=== PATIENT | male | born 1955 | race African-American/Black ===

== ENCOUNTER 2017-05-25 15:00 | Inpatient (IN) ==
[2017-05-25] MEDS ORDERED: Ipratropium/Albuterol Neb 3 ML IH ONE (15:31)
--- NOTE | 2017-05-25 15:37 | Emergency Department Note ---
Disposition Clinical Impression: Acute exacerbation of chronic obstructive airways disease Community acquired pneumonia Qualifiers: Laterality: unspecified laterality Qualified Code(s): J18.9 - Pneumonia, unspecified organism Disposition: Admitted As Inpatient Condition: Fair Referrals: Dimitri Bearden MD [Primary Care Provider] - Forms: ED Satisfaction Letter Time of Disposition: 17:25 SOB HPI - General Chief Complaint: ED Shortness of Breath/Dyspnea Stated Complaint: LISA Time Seen by Provider: 05/25/17 15:25 Source: patient Mode of arrival: ambulatory Limitations: no limitations Nursing Notes Reviewed: Yes Vital Signs Reviewed: Yes - History of Present Illness 62-year-old history COPD diagnosed with flu B couple of days ago comes in with increasing shortness of breath. Says he has been running a fever and feels worse after initially feeling better. Pt Subjective Complaint: shortness of breath Onset (ago): day(s) Context: recent illness (Flu be diagnosed couple days ago) Severity: moderate Consistency/Duration: constant Improves with: nothing Worsens with: exertion Known history of: COPD, other (Influenza) Associated symptoms: Reports: cough, wheezing Treatment prior to arrival: none Cough present: Yes Cough Description: Involuntary Cough Frequency: Intermittent Sputum Amount: None - Related Data Home Medications Medication Instructions Recorded Confirmed Albuterol Sulfate [Albuterol 2 puff IH Q4H PRN 02/03/16 05/31/16 Inhaler] Amlodipine Besylate 10 mg PO DAILY 02/03/16 05/31/16 Docusate [Colace] 100 mg PO DAILY PRN 02/03/16 05/31/16 Etodolac 500 mg PO BID 02/03/16 05/31/16 Fluticasone/Salmeterol [Advair Hfa 2 puff IH BID 02/03/16 05/31/16 115-21 Mcg Inhaler] Gabapentin [Neurontin] 400 mg PO TID 02/03/16 05/31/16 Oxycodone HCl/Acetaminophen 1 each PO Q8H PRN 02/03/16 05/31/16 [Percocet 10-325 mg Tablet] Metoprolol [Lopressor] 200 mg PO QDPC 05/31/16 05/31/16 hydrALAZINE [HydrALAZINE] 25 mg PO TID 05/31/16 05/31/16 Previous Rx's Medication Instructions Recorded Losartan [Cozaar] 50 mg PO DAILY #60 tablet 02/06/16 Tiotropium [Spiriva] 18 mcg IH 0700 #1 capsule 02/06/16 Albuterol Sulfate [Albuterol 0 puff IH Q4HR #1 hfa.aer.ad 07/08/16 Inhaler] HYDROcodone BIT/Homatropine 5 mg PO Q4HR #5 tablet 07/08/16 [Hycodan] Levofloxacin [Levaquin] 500 mg PO DAILY #9 tablet 07/08/16 predniSONE [Prednisone] 50 mg PO DAILY #5 tablet 07/08/16 Albuterol Neb [Proventil Neb] 2.5 mg IH Q4HR #30 vial.neb 05/22/17 Oseltamivir [Tamiflu] 75 mg PO BID #10 capsule 05/22/17 PredniSONE [Deltasone] 40 mg PO DAILY #3 tablet 05/22/17 Allergies Allergy/AdvReac Type Severity Reaction Status Date / Time lisinopril AdvReac Cough Verified 05/25/17 15:12 All systems ED: reviewed and negative except as stated. Constitutional: Denies: fever, chills, weakness, weight change Eyes: Denies: eye pain, eye discharge, vision change ENT ED: Denies: ear pain, throat pain, dental pain, hearing loss, epistaxis, congestion, dysphagia Cardiovascular: Denies: chest pain, palpitations, dyspnea on exertion, edema, syncope Respiratory: Reports: cough, dyspnea, wheezes. Denies: hemoptysis, stridor Gastrointestinal: Denies: abdominal pain, nausea, vomiting, diarrhea, constipation, hematemesis, melena, hematochezia Genitourinary: Denies: urgency, dysuria, frequency, hematuria Musculoskeletal: Denies: back pain, neck pain, arthralgia, myalgia Integumentary: Denies: rash, abrasion, lesions Neurological: Denies: headache, weakness, numbness, paresthesias, confusion, abnormal gait, vertigo Psychiatric: Denies: anxiety, depression, suicidal thoughts, homicidal thoughts , auditory hallucinations, visual hallucinations Endocrine: Denies: fatigue Hematological/Lymphatic: Denies: easy bleeding, easy bruising Allergic/Immunologic: Denies: facial swelling, urticaria Past Medical History - Past Medical History Medical history: Reports: arthritis, asthma, COPD, coronary artery disease, GERD , hyperlipidemia, hypertension, kidney stones, osteoporosis, peripheral artery disease Surgical history: Reports: orthopedic, other, other (Back surgery) Psychiatric history: Reports: no psych history, other - Social History Smoking Status: Current every day smoker Smokeless Tobacco Status: No Alcohol use: Reports: none Drug use: Reports: none Physical Exam - General Limitations: no limitations General appearance: alert - Head Head exam: atraumatic, normocephalic, normal inspection - Eye Eye exam: Present: normal appearance, PERRL, EOMI - ENT ENT exam: normal exam, normal oropharynx, mucous membranes moist - Neck Neck exam: Present: normal inspection, full ROM, trachea midline - Chest Chest inspection: Present: normal inspection, symmetric chest wall rise - Respiratory Respiratory exam: Present: wheezes - Cardiovascular Cardiovascular exam: Present: regular rate, normal rhythm, normal heart sounds - Abdominal Exam Abdominal exam: Present: soft, Non-Tender. Absent: tenderness, distention, guarding, rebound, rigidity - Extremities Exam Extremities exam: Present: normal inspection, full ROM. Absent: tenderness, pedal edema - Expanded Lower Extremity Exam Neurovascular/Tendon exam: Absent: motor deficit, sensory deficit, tendon deficit Gait: observed and normal - Back Exam Back exam: Present: normal inspection, full ROM. Absent: tenderness - Neurological Exam Neurological exam: Present: alert, oriented X3 - Psychiatric Psychiatric exam: Present: normal affect, normal mood - Skin Skin exam: Present: warm, dry, intact, normal color Course - Reevaluation(s) Reevaluation #1: 62-year-old male who was diagnosed with flu B about a week ago who comes in with a worsening cough and dyspnea. Has a history of COPD and is wheezing on arrival. Chest x-ray does show what appears to be early infiltrates. Patient will be admitted for further evaluation and treatment. Time: 17:24 - Consultations Consultation #1: Discussed with Dr. Robledo, admit Time: 19:01 Vital Signs Temperature 98.4 F 05/25/17 15:12 Pulse Rate 109 05/25/17 15:12 Respiratory Rate 24 05/25/17 15:12 Blood Pressure 171/83 05/25/17 15:12 O2 Sat by Pulse Oximetry 94 05/25/17 15:12 Temperature 98.4 F 05/25/17 15:12 Pulse Rate 69 05/25/17 18:54 Respiratory Rate 16 05/25/17 18:54 Blood Pressure 161/71 05/25/17 18:54 O2 Sat by Pulse Oximetry 97 05/25/17 18:54 Oxygen Delivery Oxygen Delivery Room Air Shortness of Breath/Dyspnea - Lab Data Result diagrams: 05/25/17 15:46 05/25/17 15:46 Lab Results 05/25/17 05/25/17 05/25/17 Range/Units 15:46 15:46 15:46 WBC 10.6 D (4.3-11.1) K/mcL RBC 4.68 (4.19-5.50) M/mcL Hgb 13.8 (12.9-16.9) g/dL Hct 39.7 (37.5-50.1) % MCV 84.8 (83.0-100.0) fL MCH 29.5 (28.0-33.3) pg MCHC 34.8 (31.6-35.5) g/dL RDW 12.8 (11.5-14.5) % Plt Count 196 (140-400) K/mcL MPV 10.5 (9.4-12.4) fL Immature Gran % 0.3 (0-4) % Seg Neutrophils % 89.6 % Lymphocytes % 6.7 % Monocytes % 3.2 % Eosinophils % 0.0 % Basophils % 0.2 % Neutrophils # 9.5 H (1.6-8.9) K/mcL Lymphocytes # 0.7 (0.6-4.6) K/mcL Monocytes # 0.3 (0.0-1.3) K/mcL Eosinophils # 0.0 (0.0-0.6) K/mcL Basophils # 0.0 (0.0-0.2) K/mcL Sodium 135 L (136-145) mEq/L Potassium 3.7 (3.5-5.1) mEq/L Chloride 101 (98-107) mEq/L Carbon Dioxide 26 (23-29) mEq/L BUN 30 H (8-23) mg/dL Creatinine 1.29 (0.70-1.30) mg/dL Est GFR ( Amer) > 60 (> 60) Est GFR (Non-Af Amer) 56 L (> 60) BUN/Creatinine Ratio 23 (6-26) Glucose 213 H (70-105) mg/dL Calculated Osmolality 293 (280-300) Lactic Acid 2.1 (0.5-2.2) mmol/L Calcium 8.5 L (8.6-10.3) mg/dL Troponin I < 0.03 (< 0.04) ng/mL B-Natriuretic Peptide (Less than 100) pg/mL 05/25/17 05/25/17 Range/Units 15:46 17:53 WBC (4.3-11.1) K/mcL RBC (4.19-5.50) M/mcL Hgb (12.9-16.9) g/dL Hct (37.5-50.1) % MCV (83.0-100.0) fL MCH (28.0-33.3) pg MCHC (31.6-35.5) g/dL RDW (11.5-14.5) % Plt Count (140-400) K/mcL MPV (9.4-12.4) fL Immature Gran % (0-4) % Seg Neutrophils % % Lymphocytes % % Monocytes % % Eosinophils % % Basophils % % Neutrophils # (1.6-8.9) K/mcL Lymphocytes # (0.6-4.6) K/mcL Monocytes # (0.0-1.3) K/mcL Eosinophils # (0.0-0.6) K/mcL Basophils # (0.0-0.2) K/mcL Sodium (136-145) mEq/L Potassium (3.5-5.1) mEq/L Chloride (98-107) mEq/L Carbon Dioxide (23-29) mEq/L BUN (8-23) mg/dL Creatinine (0.70-1.30) mg/dL Est GFR ( Amer) (> 60) Est GFR (Non-Af Amer) (> 60) BUN/Creatinine Ratio (6-26) Glucose (70-105) mg/dL Calculated Osmolality (280-300) Lactic Acid 1.7 (0.5-2.2) mmol/L Calcium (8.6-10.3) mg/dL Troponin I (< 0.04) ng/mL B-Natriuretic Peptide 43 (Less than 100) pg/mL - EKG Data EKG attestation: Yes I reviewed and interpreted this EKG. EKG shows normal: Reports: sinus rhythm Rate: Reports: normal Rhythm: Reports: NSR Alden/QRS: Reports: normal Interpretation: Reports: nonspecific ST-T wave changes
[2017-05-25 16:02] LABS: Basophils % 0.2 %; Hematocrit 39.7 % (37.5-50.1); Hemoglobin 13.8 g/dL (12.9-16.9); Immature Granulocytes % 0.3 % (0-4); Lymphocytes # 0.7 K/mcL (0.6-4.6); Lymphocytes % 6.7 %; Mean Corpuscular HGB Conc 34.8 g/dL (31.6-35.5); Mean Corpuscular Hemoglobin 29.5 pg (28.0-33.3); Mean Corpuscular Volume 84.8 fL (83.0-100.0); Mean Platelet Volume 10.5 fL (9.4-12.4); Monocytes # 0.3 K/mcL (0.0-1.3); Monocytes % 3.2 %; Neutrophils # 9.5 K/mcL (1.6-8.9); Platelet Count 196 K/mcL (140-400); Red Blood Count 4.68 M/mcL (4.19-5.50); Red Cell Distribution Width 12.8 % (11.5-14.5); Segmented Neutrophils % 89.6 %
[2017-05-25 16:22] LABS: BUN/Creatinine Ratio 23 (6-26); Blood Urea Nitrogen 30 mg/dL (8-23); Calcium 8.5 mg/dL (8.6-10.3); Carbon Dioxide 26 mEq/L (23-29); Chloride 101 mEq/L (98-107); Glucose 213 mg/dL (70-105); Osmolality,Calculated 293 (280-300); Potassium 3.7 mEq/L (3.5-5.1); Sodium 135 mEq/L (136-145); Troponin I < 0.03 ng/mL (< 0.04); eGFR For African Americans > 60 (> 60); eGFR For Non-African Americans 56 (> 60)
[2017-05-25] MEDS ORDERED: 0.9 % Sodium Chloride 1,000 ML IVC ONE (17:20)
[2017-05-25] MEDS ORDERED: Piperacillin/Tazobactam 3.375 GM in 0.9 % Sodium Chloride Mini Bag 100 ML IVPB ONE (17:20)
[2017-05-25] MEDS ORDERED: Ondansetron 4 MG/2 ML VIAL IVP ONE (17:20)
[2017-05-25] MEDS ORDERED: *HR* FentaNYL (PF) 100 MCG/2 ML VIAL IVP ONE (17:20)
--- NOTE | 2017-05-25 19:38 | Internal Med History&Physical ---
<Nohemy Avalos - Last Filed: 05/25/17 21:48> Date of Encounter: 05/25/17 Time of Encounter: 19:35 Assessment and Plan (1) COPD exacerbation Current visit: No Status: Acute 62 y M with COPD presenting with SOB, wheezing, and sputum production CXR reviewed, consistent with COPD exacerbation with accompanied pneunomia AM CBC, BMP pending Treatment: -Duonebs q 6 hours with prn duonebs -Continue chronic meds -Prednisone PO -Azithromycin -Low theshold for Non-invasive positive pressure ventilation: BiPaP if respiratory distress - Smoking cessation encouraged -Continous pulse ox: Target oxygen therapy to achieve an O2 sat of 90 -92%. Notify MD if pulse ox below 90% (2) Community acquired pneumonia Current visit: No Status: Acute Chest X-Ray 05/25/17 15:31 IMPRESSION:Patchy bibasilar opacities may atelectasis or early infiltrates. Pt remains afrebrile Blood culture pending IV rocephin, plus azithromycin Serial assessment of vital signs Tylenol PRN for fever Smoking cessation Recommend assessment of vaccination uptodate prior to discharge Qualifiers: Laterality: unspecified laterality Qualified Code(s): J18.9 - Pneumonia, unspecified organism (3) Influenza Current visit: No Status: Acute Hx Influenza B Positive. Continue Tamiflu. Plan as above. (4) Tobacco abuse Current visit: No Status: Chronic Pt active smoker. Encouraged smoking cessation. NO Nicotine patch as an inpatient, per patient's request. (5) Hypertension Current visit: No Status: Acute Continue home medication. Serial vitals. Hydralazine PRN BP > 180 and HR < 90. Qualifiers: Hypertension type: essential hypertension Qualified Code(s): I10 - Essential (primary) hypertension (6) DVT prophylaxis Current visit: No Status: Acute LAKHWINDER Score (Min: 5 -Reduced mobility, acute infection, BMI > 30. ) Pharmacological prophylaxis indicated. Heparin Internal Medicine - H&P: HPI Chief complaint: Cough, SOB, Influenza B Admitted From: Emergency Dept Plans for Post Hospital Care: Home History of present illness: Mr. Samson is a 62 year old male with COPD diagnosed with flu B about a week ago presenting with worsening cough and dyspnea x 2 days. Pt endorses wheezing with "little" sputum production, of bright yellow color. Endorses nausea and one episode of emesis 5 days ago, which has resolved. Nausea was associated with a self-limited course of diarrhea. No current N/V/D. Endorses abdominal "soreness". Endorses "head to toe" pain and generalized weakness with onset of symptoms. Pt has history of "broken back" which additionally causes chronic pain , medically managed with medications. No hematuria. No dsyuria. Pt is on 2 L Oxygen at home, but only uses this as needed during illness. Denies previous history of intubation. Pt takes all COPD medications PRN, but states he has used the albuterol nebulizer 5-6 times yesterday and three times this morning. Pt is active smoker. Pt not aware of names of all medications he takes. Past Med Surg Social Fam HX - Past Medical History Medical history: arthritis, asthma, COPD, coronary artery disease, GERD, hyperlipidemia, hypertension, kidney stones, osteoporosis, peripheral artery disease Psychiatric history: no psych history, other - Past Surgical History Surgical History: orthopedic, other, other (Back surgery) - Social History Smoking Status: Current every day smoker Smokeless Tobacco Status: No Alcohol use: none Drug use: none - Family History Son Adopted: No Family Member Ethnicity: Non- Living Status: Still Living Hx Family Cardiac Disorders: No Hx Family Respiratory Disorders: No Hx Family Cancer: No Hx Family GI Disorders: No Hx Family Endocrine Disorder: No Hx Family Neuromuscular Disorders: No Hx Family Neurologic Disorders: No Hx Family HEENT Disorders: No Hx Family Autoimmune Disorders: No Internal Medicine - H&P: Meds Albuterol Sulfate [Albuterol Inhaler] 2 puff IH Q4H PRN 02/03/16 [History] Amlodipine Besylate 10 mg PO DAILY 02/03/16 [History] Docusate [Colace] 100 mg PO DAILY PRN 02/03/16 [History] Etodolac 500 mg PO BID 02/03/16 [History] Oxycodone HCl/Acetaminophen [Percocet 10-325 mg Tablet] 1 each PO Q6H PRN [History] Tiotropium [Spiriva] 18 mcg IH 0700 #1 capsule 02/06/16 [Rx] hydrALAZINE [HydrALAZINE] 25 mg PO TID 05/31/16 [History] Oseltamivir [Tamiflu] 75 mg PO BID #10 capsule 05/22/17 [Rx] Albuterol Neb [Proventil Neb] 2.5 mg IH Q4HR PRN 05/25/17 [History] Buprenorphine HCl [Belbuca] 300 mcg BC TID 05/25/17 [History] Fluticasone/Salmeterol [Advair Hfa 230-21 Mcg Inhaler] 2 puff IH BID PRN [History] Gabapentin [Neurontin] 600 mg PO TID 05/25/17 [History] Losartan/HCTZ [Hyzaar 50-12.5 Tablet] 1 each PO DAILY 05/25/17 [History] 3 Allergy/AdvReac Type Severity Reaction Status Date / Time lisinopril AdvReac Cough Verified 05/25/17 15:12 All Systems PM: A 10-system review of systems was performed and is negative for pertinent findings except as documented above in the HPI. - Constitutional Constitutional: as per HPI - Cardiovascular Cardiovascular ROS IM: as per HPI - Respiratory Respiratory: as per HPI - Gastrointestinal Gastrointestinal: as per HPI - Musculoskeletal Musculoskeletal ROS IM: as per HPI - Constitutional Vitals: Temp Pulse Resp BP Pulse Ox 98.1 F 69 16 161/71 97 05/25/17 18:54 05/25/17 18:54 05/25/17 18:54 05/25/17 18:54 05/25/17 18:54 General appearance: Present: cooperative, A&O X 3, no acute distress, answers questions appropriately - Head Head exam: Present: atraumatic - Respiratory Respiratory exam: Present: prolonged expiratory phase, respiratory distress ( mild), wheezes. Absent: chest wall tenderness - Cardiovascular Cardiovascular exam: Present: RRR, +S1, +S2 - GI/Abdominal GI/Abdominal exam: Present: normal bowel sounds, tenderness (mild, diffuse), no peritoneal signs. Absent: distended, guarding - Extremities Exam Extremities exam: Absent: calf tenderness, mottling, pedal edema, tenderness Internal Med - H&P Results - Labs CBC & Chem 7: 05/25/17 15:46 05/25/17 15:46 Labs: Short CBC 05/25/17 Range/Units 15:46 WBC 10.6 D (4.3-11.1) K/mcL Hgb 13.8 (12.9-16.9) g/dL Hct 39.7 (37.5-50.1) % Plt Count 196 (140-400) K/mcL Neutrophils # 9.5 H (1.6-8.9) K/mcL BMP 05/25/17 15:46 Sodium 135 L Potassium 3.7 Chloride 101 Carbon Dioxide 26 BUN 30 H Creatinine 1.29 Glucose 213 H Calcium 8.5 L Cardiac Enzymes 05/25/17 Range/Units 15:46 Troponin I < 0.03 (< 0.04) ng/mL - EKG Data EKG comments: 05/25/17 15:54:24 Vent Rate 75. ME 128. QRS 87. QT/QTc 359 Sinus Rhthym. EKG reviewed with Dr. Tena - Impressions ITS Impressions EXAMINATION: SINGLE VIEW OF THE CHEST 05/25/2017 4:41 pm COMPARISON: 07/08/2016 HISTORY: ORDERING SYSTEM PROVIDED HISTORY: dyspnea Shortness of breath. Acute symptoms. Initial encounter. Worse over the past 2-3 days. COPD. FINDINGS: Patchy bibasilar opacities. No focal airspace consolidation. No pleural effusion or pneumothorax. Normal cardiomediastinal silhouette and pulmonary vascularity. XR/XR chest 1V portable IMPRESSION: Patchy bibasilar opacities may atelectasis or early infiltrates. <Jefferson Tena - Last Filed: 05/26/17 01:50> Date of Encounter: 05/26/17 Internal Medicine - H&P: HPI History of present illness: Mr. Samson is a 62 year old male All Systems PM: A 10-system review of systems was performed and is negative for pertinent findings except as documented above in the HPI. - Constitutional Vitals: Temp Pulse Resp BP Pulse Ox 98.4 F 77 15 160/76 93 05/25/17 20:47 05/25/17 20:47 05/25/17 22:45 05/25/17 20:47 05/25/17 22:45 Internal Med - H&P Results - Labs CBC & Chem 7: 05/25/17 15:46 05/25/17 15:46 - Attending Attestation I have seen and examined this patient independently. I have discussed with resident physician Dr. Avalos regarding the management plan. Agree with the documentation
[2017-05-25] MEDS ORDERED: Ibuprofen 400 MG TABLET PO PRN (20:15)
[2017-05-25] MEDS ORDERED: Naloxone 0.4 MG/ML INJ IVP PRN (20:15)
[2017-05-25] MEDS: *HR* OxyCODONE/APAP 10/325 TABLET PO PRN (21:32)
[2017-05-25] MEDS: Gabapentin 300 MG CAPSULE PO SCH (21:32)
[2017-05-25] MEDS: 0.9 % Sodium Chloride 1,000 ML IVC SCH (21:32)
[2017-05-25] MEDS: Azithromycin 250 MG TABLET PO SCH (21:32)
[2017-05-25] MEDS: hydrALAZINE 25 MG TABLET PO SCH (21:33)
[2017-05-25] MEDS: BUPRENORPHINE HCL 300 MCG MC SCH (21:33)
[2017-05-25] MEDS ORDERED: Ipratropium/Albuterol Neb 3 ML IH PRN (21:52)
[2017-05-25] MEDS ORDERED: Budesonide/Formoterol 160/4.5 MDI IH SCH (22:00)
[2017-05-25] MEDS: Ipratropium/Albuterol Neb 3 ML IH SCH (22:45)
[2017-05-25] MEDS: predniSONE 20 MG TABLET PO SCH (23:59)
[2017-05-25] MEDS: amLODIPine 5 MG TABLET PO SCH (23:59)
[2017-05-26] MEDS ORDERED: Ipratropium/Albuterol Neb 3 ML IH SCH
[2017-05-26] MEDS ORDERED: methylPREDNISolone 125 MG/2 ML VIAL IVP SCH
[2017-05-26] MEDS: Ipratropium/Albuterol Neb 3 ML IH SCH ×4 (04:22→21:57)
[2017-05-26 05:33] LABS: Basophils % 0.2 %; Hematocrit 36.9 % (37.5-50.1); Hemoglobin 12.5 g/dL (12.9-16.9); Immature Granulocytes % 0.2 % (0-4); Lymphocytes % 10.8 %; Mean Corpuscular HGB Conc 33.9 g/dL (31.6-35.5); Mean Corpuscular Hemoglobin 28.5 pg (28.0-33.3); Mean Corpuscular Volume 84.2 fL (83.0-100.0); Mean Platelet Volume 10.5 fL (9.4-12.4); Monocytes # 0.3 K/mcL (0.0-1.3); Monocytes % 3.1 %; Neutrophils # 8.1 K/mcL (1.6-8.9); Platelet Count 188 K/mcL (140-400); Red Blood Count 4.38 M/mcL (4.19-5.50); Red Cell Distribution Width 12.9 % (11.5-14.5); Segmented Neutrophils % 85.7 %
[2017-05-26 06:09] LABS: Platelet Estimate Normal (Normal)
[2017-05-26] MEDS: *HR* Heparin 5,000 UNIT/ML VIAL SQ SCH ×2 (06:21→18:03)
[2017-05-26 06:44] LABS: BUN/Creatinine Ratio 19 (6-26); Blood Urea Nitrogen 19 mg/dL (8-23); Calcium 8.4 mg/dL (8.6-10.3); Carbon Dioxide 25 mEq/L (23-29); Chloride 106 mEq/L (98-107); Glucose 154 mg/dL (70-105); Osmolality,Calculated 289 (280-300); Potassium 4.1 mEq/L (3.5-5.1); Sodium 137 mEq/L (136-145); eGFR For African Americans > 60 (> 60); eGFR For Non-African Americans > 60 (> 60)
[2017-05-26] MEDS ORDERED: Tiotropium 18 MCG inhalation IH SCH (07:00)
[2017-05-26] MEDS: Losartan/HCTZ 50-12.5 TABLET PO SCH (08:03)
[2017-05-26] MEDS: predniSONE 20 MG TABLET PO SCH (08:03)
[2017-05-26] MEDS: Gabapentin 300 MG CAPSULE PO SCH ×3 (08:03→20:26)
[2017-05-26] MEDS: hydrALAZINE 25 MG TABLET PO SCH ×3 (08:03→20:26)
[2017-05-26] MEDS: Azithromycin 250 MG TABLET PO SCH (08:03)
[2017-05-26] MEDS: amLODIPine 5 MG TABLET PO SCH (08:03)
[2017-05-26] MEDS: BUPRENORPHINE HCL 300 MCG MC SCH (08:04)
[2017-05-26] MEDS: cefTRIAXone 1,000 MG in Water for inj. (sterile) 20 ML 10 ML IVP SCH (08:04)
[2017-05-26] MEDS: *HR* OxyCODONE/APAP 10/325 TABLET PO PRN ×3 (08:08→20:26)
[2017-05-26] MEDS: 0.9 % Sodium Chloride 1,000 ML ONE ×2 (10:30→20:30)
[2017-05-26] MEDS: *HR* Morphine Sulfate SR (12 HR) 15 MG TABLET.ER PO SCH (18:04)
--- NOTE | 2017-05-26 19:40 | Internal Med Progress Note ---
Date of Encounter: 05/26/17 Time of Encounter: 14:37 - Assessment and plan (1) COPD exacerbation Current Visit: No Status: Acute Assessment and plan: Secondary to Flu B and community acquired pneumonia seen on chest x-ray. Continue Duo Nebs, Prednisone, azithromycin and Rocephin Tobacco cessation (2) Influenza Current Visit: No Status: Acute Assessment and plan: Continue Tamiflu (3) Community acquired pneumonia Current Visit: Yes Status: Acute Assessment and plan: as above Qualifiers: Laterality: unspecified laterality Qualified Code(s): J18.9 - Pneumonia, unspecified organism (4) Hypertension Current Visit: No Status: Acute Assessment and plan: Continue home medications Hydralazine IV prn Qualifiers: Hypertension type: essential hypertension Qualified Code(s): I10 - Essential (primary) hypertension (5) Tobacco abuse Current Visit: No Status: Chronic - Subjective Interval history: Patient states breathing and cough are better. Has still diffuse aches, denies fevers/chills, nausea/vomiting, dyspnea, chest pain. - Constitutional Vitals: Temp Pulse Resp BP Pulse Ox 98.0 F 93 18 133/76 92 05/26/17 15:25 05/26/17 15:25 05/26/17 15:25 05/26/17 15:25 05/26/17 15:25 General appearance: Present: cooperative, A&O X 3, no acute distress, answers questions appropriately - Head Head exam: Present: atraumatic, normocephalic - Eye Eye exam: Present: PERRL, conjuntiva pink, sclera anicteric Pupils: Present: PERRL - Neck Neck exam general surgery: Present: supple, trachea midline. Absent: lymphadenopathy - Respiratory Respiratory exam: Present: CTAB. Absent: accessory muscle use, rales, rhonchi, wheezes - Cardiovascular Cardiovascular exam: Present: RRR, +S1, +S2. Absent: diastolic murmur, gallop, rubs, systolic murmur - GI/Abdominal GI/Abdominal exam: Present: normal bowel sounds, soft, no peritoneal signs. Absent: distended, tenderness - Extremities Exam Extremities exam: Present: warm, radial pulses palpable and symmetrical. Absent : calf tenderness, cyanotic, pedal edema - Neurological Exam Neurological exam: Present: CN II-XII intact, oriented X3, no focal deficits. Absent: pronater drift, facial droop, speech deficit - Skin Skin exam: Present: dry, intact Internal Medicine: Result - Labs CBC & Chem 7: 05/26/17 05:08 05/26/17 05:08 Labs: Short CBC 05/26/17 Range/Units 05:08 WBC 9.5 (4.3-11.1) K/mcL Hgb 12.5 L (12.9-16.9) g/dL Hct 36.9 L (37.5-50.1) % Plt Count 188 (140-400) K/mcL Neutrophils # 8.1 (1.6-8.9) K/mcL BMP 05/26/17 05:08 Sodium 137 Potassium 4.1 Chloride 106 Carbon Dioxide 25 BUN 19 Creatinine 0.98 Glucose 154 H Calcium 8.4 L Consult Discharge Plan - Plan Referrals: Dimitri Bearden MD [Primary Care Provider] -
[2017-05-26] MEDS: 0.9 % Sodium Chloride 1,000 ML IVC SCH (20:33)
[2017-05-27] MEDS: *HR* OxyCODONE/APAP 10/325 TABLET PO PRN ×2 (02:28→07:34)
[2017-05-27] MEDS: Ipratropium/Albuterol Neb 3 ML IH SCH (04:36)
[2017-05-27] MEDS: *HR* Morphine Sulfate SR (12 HR) 15 MG TABLET.ER PO SCH (06:12)
[2017-05-27] MEDS: *HR* Heparin 5,000 UNIT/ML VIAL SQ SCH (06:14)
[2017-05-27 07:27] VITALS: BP 136/78
[2017-05-27] MEDS: hydrALAZINE 25 MG TABLET PO SCH (07:27)
[2017-05-27] MEDS: cefTRIAXone 1,000 MG in Water for inj. (sterile) 20 ML 10 ML IVP SCH (07:28)
[2017-05-27] MEDS: Gabapentin 300 MG CAPSULE PO SCH (07:28)
[2017-05-27] MEDS: Losartan/HCTZ 50-12.5 TABLET PO SCH (07:28)
[2017-05-27] MEDS: predniSONE 20 MG TABLET PO SCH (07:28)
[2017-05-27] MEDS: amLODIPine 5 MG TABLET PO SCH (07:28)
[2017-05-27] MEDS: Azithromycin 250 MG TABLET PO SCH (07:29)
--- NOTE | 2017-05-27 09:58 | Discharge Summary ---
- NOTES TO OUTPATIENT PROVIDER Notes to Outpatient Provider: Follow-up with primary care provider. Discussed smoking cessation Date of Encounter: 05/27/17 Time of Encounter: 09:55 - Discharge Diagnosis (1) COPD exacerbation Priority: Primary Status: Acute (2) Influenza Priority: Secondary Status: Acute (3) Community acquired pneumonia Priority: Secondary Status: Acute Qualifiers: Laterality: unspecified laterality Qualified Code(s): J18.9 - Pneumonia, unspecified organism (4) Hypertension Priority: Secondary Status: Acute Qualifiers: Hypertension type: essential hypertension Qualified Code(s): I10 - Essential (primary) hypertension (5) Tobacco abuse Priority: Secondary Status: Chronic Hospital course: Mr. Samson is a 62 year old male with COPD diagnosed with flu B about a week ago presenting with worsening cough and dyspnea x 2 days. Pt endorses wheezing with "little" sputum production, of bright yellow color. Endorses nausea and one episode of emesis 5 days ago, which has resolved. Nausea was associated with a self-limited course of diarrhea. No current N/V/D. Endorses abdominal "soreness". Endorses "head to toe" pain and generalized weakness with onset of symptoms. Pt has history of "broken back" which additionally causes chronic pain , medically managed with medications. No hematuria. No dsyuria. Pt is on 2 L Oxygen at home, but only uses this as needed during illness. Denies previous history of intubation. Pt takes all COPD medications PRN, but states he has used the albuterol nebulizer 5-6 times yesterday and three times this morning. Chest x-ray consistent with pneumonia, he was admitted for COPD exacerbation with pneumonia and flu. He was started on Duonebs Q6H, Prednisone PO and antibiotics. Patient improved with therapy and requested that he go home. He was in no acute distress and was stable for discharge, He was discharged to complete Levaquin for 6 days and prednisone to complete a 5 day burst. He also states he was out of his albuterol inhaler so a refill was given to him. We discussed tobacco cessation and patient states "ill be fine" Does not wish to seek cessation resources. - Time Spent with Patient Total time spent providing and/or coordinating discharge services: - Discharge Medications Prescriptions: Albuterol Sulfate [Albuterol Inhaler] 2 puff IH Q4H PRN #1 inhaler PRN Reason: Shortness Of Breath predniSONE [PredniSONE] 40 mg PO DAILY #4 tablet Home Medications: Amlodipine Besylate 10 mg PO DAILY 02/03/16 [History] Docusate [Colace] 100 mg PO DAILY PRN 02/03/16 [History] Etodolac 500 mg PO BID 02/03/16 [History] Oxycodone HCl/Acetaminophen [Percocet 10-325 mg Tablet] 1 each PO Q6H PRN [History] Tiotropium [Spiriva] 18 mcg IH 0700 #1 capsule 02/06/16 [Rx] hydrALAZINE [HydrALAZINE] 25 mg PO TID 05/31/16 [History] Albuterol Neb [Proventil Neb] 2.5 mg IH Q4HR PRN 05/25/17 [History] Buprenorphine HCl [Belbuca] 300 mcg BC TID 05/25/17 [History] Fluticasone/Salmeterol [Advair Hfa 230-21 Mcg Inhaler] 2 puff IH BID PRN [History] Gabapentin [Neurontin] 600 mg PO TID 05/25/17 [History] Losartan/HCTZ [Hyzaar 50-12.5 Tablet] 1 each PO DAILY 05/25/17 [History] Albuterol Sulfate [Albuterol Inhaler] 2 puff IH Q4H PRN #1 inhaler 05/27/17 [Rx] Levofloxacin [Levaquin] 750 mg PO DAILY #6 tablet 05/27/17 [Rx] predniSONE [PredniSONE] 40 mg PO DAILY #4 tablet 05/27/17 [Rx] Allergies/Adverse Reactions: 3 Allergy/AdvReac Type Severity Reaction Status Date / Time lisinopril AdvReac Cough Verified 05/25/17 15:12 Date of admission: 05/26/17 01:50 Primary care physician: Dimitri Bearden MD Discharging clinician: Aureliano Mosley - Constitutional Vitals: Temp Pulse Resp BP Pulse Ox 97.7 F 67 20 136/78 93 05/27/17 07:18 05/27/17 07:18 05/27/17 07:18 05/27/17 07:18 05/27/17 07:18 General appearance: Present: cooperative, A&O X 3, no acute distress, answers questions appropriately - Head Head exam: Present: atraumatic, normocephalic - Eye Eye exam: Present: PERRL, conjuntiva pink, sclera anicteric Pupils: Present: PERRL - Neck Neck exam general surgery: Present: supple, trachea midline. Absent: lymphadenopathy - Respiratory Respiratory exam: Present: CTAB. Absent: accessory muscle use, rales, rhonchi, wheezes - Cardiovascular Cardiovascular exam: Present: RRR, +S1, +S2. Absent: diastolic murmur, gallop, rubs, systolic murmur - GI/Abdominal GI/Abdominal exam: Present: normal bowel sounds, soft, no peritoneal signs. Absent: distended, tenderness - Extremities Exam Extremities exam: Present: warm, radial pulses palpable and symmetrical. Absent : calf tenderness, cyanotic, pedal edema - Neurological Exam Neurological exam: Present: CN II-XII intact, oriented X3, no focal deficits. Absent: pronater drift, facial droop, speech deficit - Skin Skin exam: Present: dry, intact - Patient Status Disposition: Home, Self-Care Condition: Fair Functional capacity at discharge: independent ambulation Overall status at discharge: patient is back to baseline - Discharge Instructions Follow Up With: iDmitri Bearden MD [Primary Care Provider] - - Diet and Activity Activity: increase activity as tolerated Diet: advance to your usual diet
--- NOTE | 2017-05-27 16:33 | Electrocardiograph Report ---
[place] [id number] Test Date: 2017-05-25 Pat Name: Bernardo Samson Department: 103 Room: 3A44 Gender: M Tower Operator: : [id number] Requested By: Juan Carlos Bower Order Number: [id number] Reading MD: Chelsea Dow Measurements Intervals [place] Rate: 75 P: 39 SC: 128 QRS: 60 QRSD: 87 T: 60 QT: 330 QTc: 359 Interpretive Statements SINUS RHYTHM NONSPECIFIC ST-WAVE ABNORMALITY Electronically Signed On 05-27-2017 16:31:37 EDT by Chelsea Dow
== END 2017-05-27 10:36 | disposition home or self-care (01) | DRG 140 ==
LOC: 3ANU 15:00 → EMEROO 15:00 → 3ANU 20:23
PROVIDERS: ADMIT Hospitalist; ATTEND Student in an Organized Health Care Education/Training Program

== ENCOUNTER 2019-03-31 17:51 | Inpatient (IN) ==
[2019-03-31] MEDS ORDERED: SUMAtriptan succinate 25 MG TABLET PO ONE (19:40)
[2019-03-31] MEDS ORDERED: Naloxone 0.4 MG/ML INJ IVP PRN (19:52)
[2019-03-31] MEDS ORDERED: Ipratropium/Albuterol Neb 3 ML IH PRN (20:28)
[2019-03-31] MEDS ORDERED: Ondansetron ODT 4 MG TAB.RAPDIS PO PRN (21:00)
[2019-03-31] MEDS ORDERED: *HR* Heparin 5,000 UNIT/ML VIAL IVP PRN ×2 (21:20)
[2019-03-31 21:47] LABS: Mean Corpuscular HGB Conc 32.4 g/dL (31.6-35.5); Mean Corpuscular Hemoglobin 29.9 pg (28.0-33.3); Mean Corpuscular Volume 92.3 fL (83.0-100.0); Mean Platelet Volume 10.5 fL (9.4-12.4); Platelet Count 295 K/mcL (140-400); Red Blood Count 4.01 M/mcL (4.19-5.50); Red Cell Distribution Width 13.7 % (11.5-14.5); White Blood Count 20.2 K/mcL (4.3-11.1)
[2019-03-31] MEDS: Gabapentin 400 MG CAPSULE PO SCH (21:49)
[2019-03-31] MEDS: Metoprolol XL (24 HR) Succ 50 MG TAB.ER.24H PO SCH (21:49)
[2019-03-31 21:51] LABS: Heparin anti-factor XA UFH 0.03 IU/mL (0.30-0.70)
[2019-03-31 21:52] LABS: INR 1.1; Prothrombin Time 12.2 Seconds (9.4-12.1)
[2019-03-31] MEDS ORDERED: Budesonide/Formoterol 160/4.5 1 PUFF INH IH SCH (22:00)
[2019-03-31] MEDS: Heparin 25,000 UNIT/250 ML D5W 25,000 UNIT/250 ML IV.SOLN IVC SCH (22:36)
[2019-03-31] MEDS: *HR* OxyCODONE/APAP 5/325 TABLET PO PRN (23:10)
[2019-04-01 03:38] LABS: Basophils % 0.2 %; Hematocrit 35.7 % (37.5-50.1); Immature Granulocytes % 1.5 % (0-4); Lymphocytes # 1.7 K/mcL (0.6-4.6); Lymphocytes % 9.5 %; Mean Corpuscular HGB Conc 33.6 g/dL (31.6-35.5); Mean Corpuscular Hemoglobin 29.9 pg (28.0-33.3); Mean Platelet Volume 10.5 fL (9.4-12.4); Monocytes # 1.1 K/mcL (0.0-1.3); Monocytes % 6.2 %; Neutrophils # 15.2 K/mcL (1.6-8.9); Platelet Count 319 K/mcL (140-400); Red Blood Count 4.01 M/mcL (4.19-5.50); Red Cell Distribution Width 13.9 % (11.5-14.5); Segmented Neutrophils % 82.6 %; White Blood Count 18.4 K/mcL (4.3-11.1)
[2019-04-01 03:55] LABS: BUN/Creatinine Ratio 15 (6-26); Blood Urea Nitrogen 18 mg/dL (8-23); Calcium 9.1 mg/dL (8.6-10.3); Carbon Dioxide 28 mEq/L (23-29); Chloride 106 mEq/L (98-107); Glucose 112 mg/dL (70-105); Osmolality,Calculated 297 (280-300); Potassium 3.7 mEq/L (3.5-5.1); Sodium 142 mEq/L (136-145); eGFR For African Americans > 60 (> 60); eGFR For Non-African Americans > 60 (> 60)
[2019-04-01] MEDS: *HR* OxyCODONE/APAP 5/325 TABLET PO PRN ×3 (06:29→20:30)
[2019-04-01] MEDS ORDERED: Nicotine 21 MG PATCH.TD24 TD SCH ×2 (09:00→21:57)
[2019-04-01] MEDS: Metoprolol XL (24 HR) Succ 50 MG TAB.ER.24H PO SCH ×2 (09:26→20:30)
[2019-04-01] MEDS: Gabapentin 400 MG CAPSULE PO SCH ×3 (09:26→20:29)
[2019-04-01] MEDS: Nicotine 21 MG PATCH.TD24 TD SCH (09:26)
[2019-04-01] MEDS: predniSONE 20 MG TABLET PO SCH (09:26)
[2019-04-01] MEDS: amLODIPine 5 MG TABLET PO SCH (09:26)
[2019-04-01] MEDS: Acetaminophen 325 MG TABLET PO PRN ×2 (10:30→20:41)
[2019-04-01] MEDS: Budesonide/Formoterol 160/4.5 1 PUFF INH IH SCH ×2 (11:10→22:21)
[2019-04-01] MEDS: Loratadine 10 MG TABLET PO SCH (15:31)
[2019-04-01] MEDS ORDERED: D5% in Water 1,000 ML IVC PRN (16:12)
[2019-04-01] MEDS ORDERED: *HR* Dextrose 50 % in Water (Syg) 50 ML SYRINGE IVP PRN (16:12)
[2019-04-01] MEDS ORDERED: Dextrose Gel 15 GM/37.5 ML TUBE PO PRN ×2 (16:12)
[2019-04-01] MEDS: Insulin LISPRO 300 UNITS/3 ML VIAL SQ SCH ×2 (16:39→20:32)
[2019-04-01] MEDS: Heparin 25,000 UNIT/250 ML D5W 25,000 UNIT/250 ML IV.SOLN IVC SCH (20:32)
[2019-04-02] MEDS: *HR* OxyCODONE/APAP 5/325 TABLET PO PRN ×2 (04:13→14:17)
[2019-04-02] MEDS: Acetaminophen 325 MG TABLET PO PRN (04:13)
[2019-04-02 04:20] LABS: BUN/Creatinine Ratio 20 (6-26); Blood Urea Nitrogen 26 mg/dL (8-23); Calcium 8.8 mg/dL (8.6-10.3); Carbon Dioxide 27 mEq/L (23-29); Chloride 106 mEq/L (98-107); Glucose 84 mg/dL (70-105); Osmolality,Calculated 294 (280-300); Potassium 3.6 mEq/L (3.5-5.1); Sodium 140 mEq/L (136-145); eGFR For African Americans > 60 (> 60); eGFR For Non-African Americans 55 (> 60)
[2019-04-02 04:23] LABS: Basophils % 0.4 %; Eosinophils % 0.4 %; Hematocrit 35.1 % (37.5-50.1); Hemoglobin 11.9 g/dL (12.9-16.9); Immature Granulocytes % 1.3 % (0-4); Lymphocytes # 3.2 K/mcL (0.6-4.6); Lymphocytes % 28.8 %; Mean Corpuscular HGB Conc 33.9 g/dL (31.6-35.5); Mean Corpuscular Hemoglobin 29.6 pg (28.0-33.3); Mean Corpuscular Volume 87.3 fL (83.0-100.0); Mean Platelet Volume 10.8 fL (9.4-12.4); Monocytes # 1.1 K/mcL (0.0-1.3); Monocytes % 9.8 %; Neutrophils # 6.6 K/mcL (1.6-8.9); Platelet Count 305 K/mcL (140-400); Red Blood Count 4.02 M/mcL (4.19-5.50); Red Cell Distribution Width 13.6 % (11.5-14.5); Segmented Neutrophils % 59.3 %; White Blood Count 11.1 K/mcL (4.3-11.1)
[2019-04-02] MEDS: Budesonide/Formoterol 160/4.5 1 PUFF INH IH SCH ×2 (07:23→19:28)
[2019-04-02] MEDS: Loratadine 10 MG TABLET PO SCH (07:54)
[2019-04-02] MEDS: amLODIPine 5 MG TABLET PO SCH (07:54)
[2019-04-02] MEDS: Gabapentin 400 MG CAPSULE PO SCH ×3 (07:54→19:50)
[2019-04-02] MEDS: Metoprolol XL (24 HR) Succ 50 MG TAB.ER.24H PO SCH ×2 (07:54→19:50)
[2019-04-02] MEDS: predniSONE 20 MG TABLET PO SCH (07:55)
[2019-04-02] MEDS: Nicotine 21 MG PATCH.TD24 TD SCH (07:55)
[2019-04-02] MEDS: Fenofibrate 54 MG TABLET PO SCH (07:55)
[2019-04-02] MEDS: Insulin LISPRO 300 UNITS/3 ML VIAL SQ SCH ×4 (07:56→19:46)
[2019-04-02] MEDS: Heparin 25,000 UNIT/250 ML D5W 25,000 UNIT/250 ML IV.SOLN IVC SCH (14:34)
[2019-04-02] MEDS: *HR* OxyCODONE/APAP 10/325 TABLET PO PRN (19:50)
[2019-04-03] MEDS: *HR* OxyCODONE/APAP 10/325 TABLET PO PRN ×3 (02:53→20:18)
[2019-04-03 04:33] LABS: Basophils # 0.1 K/mcL (0.0-0.2); Basophils % 0.7 %; Eosinophils # 0.1 K/mcL (0.0-0.6); Hematocrit 41.2 % (37.5-50.1); Immature Granulocytes % 2.2 % (0-4); Lymphocytes # 3.9 K/mcL (0.6-4.6); Lymphocytes % 29.4 %; Mean Corpuscular HGB Conc 33.3 g/dL (31.6-35.5); Mean Corpuscular Volume 90.4 fL (83.0-100.0); Mean Platelet Volume 10.8 fL (9.4-12.4); Monocytes # 1.5 K/mcL (0.0-1.3); Monocytes % 11.1 %; Neutrophils # 7.3 K/mcL (1.6-8.9); Nucleated Red Blood Cells 0.2 /100 WBC (0); Platelet Count 364 K/mcL (140-400); Red Blood Count 4.56 M/mcL (4.19-5.50); Red Cell Distribution Width 13.2 % (11.5-14.5); Segmented Neutrophils % 55.6 %; White Blood Count 13.1 K/mcL (4.3-11.1)
[2019-04-03 04:34] LABS: Hemoglobin 13.7 g/dL (12.9-16.9)
[2019-04-03 04:50] LABS: Calcium 9.2 mg/dL (8.6-10.3); Potassium 3.7 mEq/L (3.5-5.1)
[2019-04-03] MEDS: Budesonide/Formoterol 160/4.5 1 PUFF INH IH SCH ×2 (07:53→20:41)
[2019-04-03] MEDS: Insulin LISPRO 300 UNITS/3 ML VIAL SQ SCH ×4 (08:31→20:17)
[2019-04-03] MEDS: predniSONE 20 MG TABLET PO SCH (08:32)
[2019-04-03] MEDS: Fenofibrate 54 MG TABLET PO SCH (08:32)
[2019-04-03] MEDS: Metoprolol XL (24 HR) Succ 50 MG TAB.ER.24H PO SCH ×2 (08:32→20:17)
[2019-04-03] MEDS: Loratadine 10 MG TABLET PO SCH (08:32)
[2019-04-03] MEDS: Gabapentin 400 MG CAPSULE PO SCH ×3 (08:32→20:17)
[2019-04-03] MEDS: amLODIPine 5 MG TABLET PO SCH (08:33)
[2019-04-03] MEDS: Nicotine 21 MG PATCH.TD24 TD SCH (08:33)
[2019-04-03] MEDS ORDERED: 0.9 % Sodium Chloride 500 ML IVC PRN (09:04)
[2019-04-03] MEDS: Heparin 25,000 UNIT/250 ML D5W 25,000 UNIT/250 ML IV.SOLN IVC SCH (09:19)
[2019-04-03] MEDS ORDERED: 0.9 % Sodium Chloride 500 ML IVC SCH (09:30)
[2019-04-03] MEDS: 0.9 % Sodium Chloride 1,000 ML IVC SCH ×2 (10:22→20:35)
[2019-04-03] MEDS ORDERED: 0.9 % Sodium Chloride 1,000 ML ONE ×2 (13:37→13:41)
[2019-04-03] MEDS ORDERED: Nitroglycerin 1,000 MCG/10 ML VIAL IV ONE (13:38)
[2019-04-03] MEDS ORDERED: *HR* Heparin 10,000 UNIT/10 ML VIAL ONE ×2 (13:38→15:14)
[2019-04-03] MEDS ORDERED: Heparin 1,000 UNITS/500 mL 500 ML ONE ×2 (13:38→15:19)
[2019-04-03] MEDS ORDERED: ISOVUE-370 200 ML INFUS..BTL ONE (13:38)
[2019-04-03] MEDS ORDERED: *HR* Midazolam HCl 2 MG/2 ML VIAL ONE (14:23)
[2019-04-03] MEDS ORDERED: *HR* FentaNYL (PF) 100 MCG/2 ML VIAL ONE (14:23)
[2019-04-03] MEDS ORDERED: *HR* Labetalol 100 MG/20 ML MDV ONE (14:43)
[2019-04-03] MEDS ORDERED: Nitroglycerin Spray 4.9 GM BOTTLE ONE (14:43)
[2019-04-03] MEDS ORDERED: Tirofiban 12.5 MG/250ML 12.5 MG/250 ML BAG ONE (15:14)
[2019-04-03] MEDS: Sennosides/Docusate Sodium TABLET PO SCH (20:18)
[2019-04-04] MEDS: 0.9 % Sodium Chloride 1,000 ML IVC SCH (01:13)
[2019-04-04] MEDS: *HR* OxyCODONE/APAP 10/325 TABLET PO PRN ×2 (02:00→09:04)
[2019-04-04 06:35] VITALS: BP 161/90
[2019-04-04] MEDS: Budesonide/Formoterol 160/4.5 1 PUFF INH IH SCH (07:37)
[2019-04-04] MEDS: Insulin LISPRO 300 UNITS/3 ML VIAL SQ SCH (07:56)
[2019-04-04 08:47] LABS: Basophils # 0.1 K/mcL (0.0-0.2); Basophils % 0.7 %; Eosinophils # 0.1 K/mcL (0.0-0.6); Eosinophils % 0.7 %; Hematocrit 36.8 % (37.5-50.1); Hemoglobin 12.3 g/dL (12.9-16.9); Immature Granulocytes % 3.5 % (0-4); Lymphocytes # 3.3 K/mcL (0.6-4.6); Lymphocytes % 31.4 %; Mean Corpuscular HGB Conc 33.4 g/dL (31.6-35.5); Mean Corpuscular Hemoglobin 29.4 pg (28.0-33.3); Mean Platelet Volume 10.7 fL (9.4-12.4); Monocytes # 0.7 K/mcL (0.0-1.3); Monocytes % 6.5 %; Platelet Count 304 K/mcL (140-400); Red Blood Count 4.18 M/mcL (4.19-5.50); Red Cell Distribution Width 13.3 % (11.5-14.5); Segmented Neutrophils % 57.2 %; White Blood Count 10.5 K/mcL (4.3-11.1)
[2019-04-04] MEDS: Fenofibrate 54 MG TABLET PO SCH (08:53)
[2019-04-04] MEDS: Gabapentin 400 MG CAPSULE PO SCH (08:53)
[2019-04-04] MEDS: Metoprolol XL (24 HR) Succ 50 MG TAB.ER.24H PO SCH (08:53)
[2019-04-04] MEDS: predniSONE 20 MG TABLET PO SCH (08:53)
[2019-04-04] MEDS: amLODIPine 5 MG TABLET PO SCH (08:53)
[2019-04-04] MEDS: Loratadine 10 MG TABLET PO SCH (08:54)
[2019-04-04] MEDS: Nicotine 21 MG PATCH.TD24 TD SCH (08:54)
[2019-04-04] MEDS: Sennosides/Docusate Sodium TABLET PO SCH (08:54)
[2019-04-04] MEDS ORDERED: Aspirin 81 MG TAB.CHEW PO SCH (09:00)
[2019-04-04 09:05] LABS: BUN/Creatinine Ratio 13 (6-26); Blood Urea Nitrogen 17 mg/dL (8-23); Calcium 8.4 mg/dL (8.6-10.3); Carbon Dioxide 28 mEq/L (23-29); Chloride 106 mEq/L (98-107); Glucose 124 mg/dL (70-105); Osmolality,Calculated 295 (280-300); Potassium 3.6 mEq/L (3.5-5.1); Sodium 141 mEq/L (136-145); eGFR For African Americans > 60 (> 60); eGFR For Non-African Americans 58 (> 60)
== END 2019-04-04 12:24 | disposition home or self-care (01) | DRG 174 ==
LOC: INTOOBSV 19:14 → SUATTDRO 19:14 → 2ANU 19:14
PROVIDERS: ADMIT Internal Medicine; ATTEND Internal Medicine

== ENCOUNTER 2021-04-09 18:22 | Observation (INO) ==
[~2021-04-09 18:22] MED LIST: Aspirin 81 MG TAB.CHEW PO ONE
[2021-04-09 20:58] LABS: Basophils # 0.1 K/mcL (0.0-0.2); Basophils % 0.9 %; Eosinophils # 0.4 K/mcL (0.0-0.6); Eosinophils % 4.1 %; Hematocrit 39.7 % (37.5-50.1); Hemoglobin 13.2 g/dL (12.9-16.9); Immature Granulocytes % 0.4 % (0-4); Lymphocytes # 2.6 K/mcL (0.6-4.6); Lymphocytes % 29.4 %; Mean Corpuscular HGB Conc 33.2 g/dL (31.6-35.5); Mean Corpuscular Hemoglobin 30.5 pg (28.0-33.3); Mean Corpuscular Volume 91.7 fL (83.0-100.0); Mean Platelet Volume 10.4 fL (9.4-12.4); Monocytes % 10.8 %; Neutrophils # 4.9 K/mcL (1.6-8.9); Platelet Count 290 K/mcL (140-400); Red Blood Count 4.33 M/mcL (4.19-5.50); Red Cell Distribution Width 12.7 % (11.5-14.5); Segmented Neutrophils % 54.4 %
[2021-04-09 21:01] LABS: VBG HCO3 27 mEq/L (21-27); VBG PCO2 51 mmHg (41-51); VBG PH 7.33 pH Units (7.32-7.42); VBG PO2 92 mmHg (25-50)
[2021-04-09 21:25] LABS: Alanine Aminotransferase 22 Units/L (7-52); Albumin 4.8 g/dL (3.5-5.7); Albumin/Globulin Ratio 2.1 (1.1-2.2); Alkaline Phosphatase 49 Units/L (34-104); Aspartate Amino Transferase 19 Units/L (13-39); BUN/Creatinine Ratio 10 (6-26); Bilirubin,Indirect 0.3 mg/dL (0.0-1.0); Bilirubin,Total 0.3 mg/dL (0.3-1.0); Blood Urea Nitrogen 18 mg/dL (8-23); Calcium 9.8 mg/dL (8.6-10.3); Carbon Dioxide 29 mEq/L (23-29); Chloride 100 mEq/L (98-107); Globulin 2.3 g/dL (2.4-3.5); Glucose 96 mg/dL (70-105); Lipase 47 Units/L (11-82); Osmolality,Calculated 280 (280-300); Potassium 3.8 mEq/L (3.5-5.1); Sodium 134 mEq/L (136-145); Total Protein 7.1 g/dL (6.4-8.9); Troponin I < 0.03 ng/mL (< 0.04); eGFR For African Americans 47 (> 60); eGFR For Non-African Americans 39 (> 60)
[2021-04-10] MEDS ORDERED: Morphine Sulfate 2 MG/ML SYRINGE IVP PRN (02:16)
[2021-04-10] MEDS ORDERED: Nitroglycerin 0.4 MG TAB.SUBL SL PRN (02:35)
[2021-04-10] MEDS ORDERED: Perflutren Lipid Microsphere 1.3 ML in 0.9 % Sodium Chloride 8.7 ML IVP PRN (02:36)
[2021-04-10] MEDS ORDERED: Acetaminophen 325 MG TABLET PO PRN (02:44)
[2021-04-10] MEDS ORDERED: Ondansetron 4 MG/2 ML VIAL IVP PRN (02:44)
[2021-04-10] MEDS ORDERED: Naloxone 0.4 MG/ML INJ IVP PRN (02:44)
[2021-04-10 03:12] LABS: Influenza A PCR Negative (Negative); Influenza B PCR Negative (Negative); Resp. Syncytial Virus PCR Negative (Negative)
[2021-04-10 03:18] LABS: SARS-CoV-2 by PCR (In House) Negative (Negative)
[2021-04-10] MEDS: Famotidine 20 MG/2 ML VIAL IVP SCH ×2 (04:43→15:33)
[2021-04-10] MEDS: *HR* Heparin 5,000 UNIT/ML VIAL SQ SCH ×2 (04:43→13:14)
[2021-04-10 05:23] LABS: Amphetamine Screen,Urine Negative ng/mL (Cutoff=1000); Barbiturate Screen,Urine Negative ng/mL (Cutoff=200); Benzodiazepines Screen,Urine Negative ng/mL (Cutoff=200); Cannabinoid Screen,Urine Negative ng/mL (Cutoff = 50); Cocaine Screen,Urine Negative ng/mL (Cutoff= 300); Opiate Screen,Urine Positive ng/mL (Cutoff=300); Phencyclidine Screen,Urine Negative ng/mL (Cutoff=25)
[2021-04-10] MEDS ORDERED: Regadenoson 0.4 MG/5 ML SYRINGE IVP ONE (06:23)
[2021-04-10 07:01] LABS: Hematocrit 38.1 % (37.5-50.1); Hemoglobin 12.7 g/dL (12.9-16.9); Mean Corpuscular HGB Conc 33.3 g/dL (31.6-35.5); Mean Corpuscular Hemoglobin 30.5 pg (28.0-33.3); Mean Corpuscular Volume 91.4 fL (83.0-100.0); Mean Platelet Volume 10.6 fL (9.4-12.4); Platelet Count 235 K/mcL (140-400); Red Blood Count 4.17 M/mcL (4.19-5.50); Red Cell Distribution Width 12.8 % (11.5-14.5); White Blood Count 5.4 K/mcL (4.3-11.1)
[2021-04-10 07:12] LABS: INR 1.1; Prothrombin Time 11.9 Seconds (9.4-12.1)
[2021-04-10 07:15] LABS: Activated Partial Thrombo Time 33.5 Seconds (26.0-36.0)
[2021-04-10 07:21] LABS: Calcium 9.5 mg/dL (8.6-10.3)
[2021-04-10 07:27] LABS: Chol/HDL Ratio 3.7 (0-4.9)
[2021-04-10 07:37] LABS: Thyroid Stimulating Hormone 2.225 mcIU/mL (0.340-5.600)
[2021-04-10] MEDS ORDERED: amLODIPine 5 MG TABLET PO SCH (09:00)
[2021-04-10] MEDS ORDERED: Aspirin Enteric Coated 81 MG Tablet PO SCH (09:00)
[2021-04-10 09:39] LABS: Estimated Average Glucose 126 mg/dl
[2021-04-10] MEDS ORDERED: Budesonide/Formoterol 160/4.5 1 PUFF INH IH SCH (10:00)
[2021-04-10] MEDS: Gabapentin 400 MG CAPSULE PO SCH ×2 (10:56→15:33)
[2021-04-10] MEDS: Levalbuterol Neb 1.25 MG/3 ML IH SCH ×2 (11:04→15:25)
[2021-04-10] MEDS ORDERED: Metoprolol XL (24 HR) Succ 50 MG TAB.ER.24H PO SCH (12:43)
[2021-04-10] MEDS ORDERED: *HR* OxyCODONE/APAP 10/325 TABLET PO PRN (12:46)
[2021-04-10] MEDS ORDERED: NON-FORMULARY MEDICATION 1 EACH EACH (Fluticasone/Salmeterol [Advair Hfa 230-21 Mcg Inhale IH PRN (12:46)
[2021-04-10 14:46] VITALS: BP 130/75; PULSE 65; TEMP 97.8; O2SAT 96
[2021-04-11] MEDS ORDERED: NON-FORMULARY MEDICATION 1 EACH EACH (Olmesartan/Hydrochlorothiazide [Olmesartan-Hctz 20-1 PO SCH (09:00)
[2021-04-11] MEDS ORDERED: Losartan/HCTZ 50-12.5 TABLET PO SCH (09:00)
[2021-04-11] MEDS ORDERED: Linaclotide [Linzess] 145 MCG Capsule PO SCH (09:00)
== END 2021-04-10 16:00 | disposition left against medical advice (07) ==
LOC: EMEROOARM 18:22 → 3BNU 18:22
PROVIDERS: ADMIT Student in an Organized Health Care Education/Training Program; ATTEND Student in an Organized Health Care Education/Training Program